=== PATIENT | male | born 1980 | race Native Hawaiian/Other Pacific Islander ===

== ENCOUNTER 2016-11-18 06:15 | Day surgery (SDC) | payer BC ==
[2016-11-17 11:56] VITALS: BMI 24.3
[2016-11-18 06:58] VITALS: RESP 18
[2016-11-18] MEDS ORDERED: Lactated Ringer's 1,000 ML IV ONE ×2 (07:12→09:08)
[2016-11-18] MEDS ORDERED: Ropivacaine 0.5% 30ML IV ONE (07:21)
[2016-11-18] MEDS ORDERED: Propofol 10 mg/ml Inj (20 ML) ONE (07:26)
[2016-11-18] MEDS ORDERED: Rocuronium 10 mg/ml (5 ml) ONE (07:26)
[2016-11-18] MEDS ORDERED: Phenylephrine 10 mg/ml Inj ONE (07:26)
[2016-11-18] MEDS ORDERED: Succinylcholine 200 mg/10 ml Inj IV ONE (07:26)
[2016-11-18] MEDS ORDERED: Lidocaine 4% (Laryng-O-Jet) Kit MM ONE (07:31)
[2016-11-18] MEDS ORDERED: Lidocaine 2% w Epi 1:100,000 Inj IJ ONE (08:00)
[2016-11-18] MEDS ORDERED: Lidocaine 1% Inj (20ml) ONE (08:00)
[2016-11-18] MEDS ORDERED: Bupivacaine 0.5% Inj(30mL) ONE (08:00)
[2016-11-18] MEDS ORDERED: Neostigmine Methylsulfate 3mg/3ml Syringe IV ONE (09:08)
[2016-11-18] MEDS ORDERED: Dexamethasone 4 mg/1 ml ONE (09:20)
[2016-11-18] MEDS ORDERED: Oxycodone/Acetaminophen 5/325 mg Tab PO PRN (09:43)
[2016-11-18] MEDS ORDERED: Lactated Ringer's 1,000 ML IV SCH (09:58)
[2016-11-18] MEDS ORDERED: HYDROmorphone 0.5 mg/0.5 ml ISec IVP PRN (09:58)
--- NOTE | 2016-11-18 10:02 | PCM.ANESB1 ---
Interscalene Block - Brachial Plexus Date of Procedure: 11/18/00 Anesthesiologist: Edith Pre-Procedure Diagnosis: R labral tear Post-Procedure Diagnosis: Same Procedure Performed: Interscalene Block of Brachial Plexus Right - Procedure Interscalene Block of Brachial Plexus: This procedure was explained to the patient that it is for post-operative pain management. Consent was obtained after a thorough discussion with the patient regarding the benefits and possible complications of local anesthetic block of the Brachial Plexus at the Interscalene area. The patient was brought to the Operating Room and standard monitors were applied. Time out was held with the circulating nurse to confirm the correct surgery and appropriate block. After procedure,under general anesthesia at request of patient, the patient's head was gently rotated away from the ___right___operative shoulder and the anterior scalene groove was carefully palpated. The ultrasound transducer was then applied to the skin in the transverse plane and the brachial plexus was visualized lateral to the carotid artery and in between the anterior and middle scalene muscles. After identification,the anterior lateral portion of the neck was prepped with Betadine solution three times and Lidocaine 1% was injected subcutaneously for topical analgesia. At this point, a # 22 gauge Stimuplex 2 inches insulated needle was inserted into the interscalene groove and directed in a caudal and midline direction. The needle was inserted lateral to the ultrasound transducer in-plane towards the brachial plexus in a [id number] direction. Needle advancement was performed carefully under direct ultrasound visualization. Nerve stimulator was used and twitched of the affected extremity including the hand brachialis muscles, biceps and the deltoid was obtained at a current of _0.5___MA. After repeated negative aspiration,___2__cc of___0.5%__, ropivicaine were injected and this was followed with ___18__cc of __0.5% ropivicaine___% ___ . Under ultrasound guidance the local anesthetics were observed surrounding the roots of the brachial plexus. The needle was removed intact and sterile dressing was applied. The patient had stable vital signs, was conscious and in no apparent distress. The patient tolerated the interscalene block of the bracheal plexus well with stable vital signs and was prepared for subsequent surgery.
[2016-11-18] MEDS ORDERED: Sodium Chloride 0.9% 1,000 ML IV ONE (11:55)
--- NOTE | 2016-11-18 12:50 | PCM.SURG1 ---
Surgeon's Initial Post Op Note - Surgeon's Notes Surgeon: Shireen Smart MD Director Of Accreditation: Dr. Kilgore Type of Anesthesia: General Endo, Other (Intrascalene block ) Pre-Operative Diagnosis: Right shoulder labral tear Operative Findings: See op report Post-Operative Diagnosis: Same as pre-op dx Operation Performed: Right shoulder Bankart artroscopy, labral repair, synovectomy, subacromial decompression Specimen/Specimens Removed: none Estimated Blood Loss: EBL {In ML}: 5 Date of Surgery/Procedure: 11/18/16 Time of Surgery/Procedure: 08:30
[2016-11-18 15:05] VITALS: BP 140/87; PULSE 87; TEMP 98; O2SAT 98
--- NOTE | 2016-11-19 10:38 | OP ---
PROCEDURE DATE: 11/18/2016 ATTENDING PHYSICIAN: Shireen Smart MD WATER QUALITY SPECIALIST: Robert Kilgore MD PREOPERATIVE DIAGNOSES: 1. Right shoulder anterior labral tear. 2. Synovitis. 3. Impingement. POSTOPERATIVE DIAGNOSES: 1. Right shoulder Bankart tear. 2. Synovitis. 3. Posterior-superior labral tear. 4. Subacromial bursitis. 5. Multiple subacromial adhesions. 6. Impingement. PROCEDURE: 1. Right shoulder arthroscopic Bankart repair, 09713. 2. Complete synovectomy, 95013. 3. Lysis of adhesions without manipulation, 76796. 4. Subacromial decompression with acromioplasty, 74301. TYPE OF ANESTHESIA: General, interscalene block. ESTIMATED BLOOD LOSS: 10 mL. SPECIMEN: None. CLOSURE: Primary. FLUIDS: See anesthesia sheet. ANTIBIOTICS: See anesthesia sheet. COMPLICATIONS: None. INDICATIONS: After failing a course of nonoperative therapy, the patient elected to undergo the above procedures. In the office the risks and possible complications of the shoulder arthroscopy were discussed in detail with the patient. These risks include, but are not limited to, continued pain, lack of motion, infection, vascular injury, and nerve injury including axillary nerve dysfunction, reflex sympathetic dystrophy, compartment syndrome, limb loss, and . The patient expressed an understanding of the risks and possible benefits of the procedure, and was also made aware of the alternatives to surgery. An informed consent was obtained, and was checked immediately preop. The patient was correctly identified in the holding area and the right shoulder was marked with the surgeon's initials. The patient was transported to the operating room and placed in the supine position and general anesthesia was obtained and regional interscalene block examined under anesthesia. A preoperative orthopedic examination revealed a passive range of motion of 170 degrees of forward elevation, 50 degrees of external rotation, and 120 degrees of abduction. Stability examination revealed anterior instability. Examination of the glenohumeral joint revealed: 1. Anterior labral tear and a paralabral cyst. 2. Extensive synovitis. 3. Posterior-superior labral tear. Using the probe, the labrum was circumferentially assessed for tear. Tears were note at posterior superior labrum. Using the 4.0 motorized shaver and radiofrequency probe, the torn edges of the labrum were debrided until stable rim, preventing any further propagation. Excessive glenohumeral synovitis was cleared with a 4.0 mm full radius shaver. The hypertrophic, erythematous synovium was resected. Hemostasis was maintained with the radiofrequency device. At this point, the anterior-inferior glenoid labral tear was addressed. An additional trans-subscapular portal was made with spinal needle localization, and a 7-mm cannula was inserted to obtain the correct angle for implant placement. Using an arthroscopic rasper, the glenoid surface was denuded down to bleeding bone. A SutureLasso passer was used to pass two #2 FiberTape sutures through the anterior-inferior labrum. An Arthrex PushLock bioabsorbable anchor was inserted using the standard technique at the 5 o'clock position after the inferior sutures were threaded through the end of the device. Proper anterior and inferior capsular tension was achieved, and the device was firmly impacted into the glenoid using a mallet. This technique was used for the superior implant as well. The shoulder was put through a range of motion, and anterior stability was confirmed by the absence of a drive-through sign as well as with an arthroscopic drawer test. At this point, the arthroscope was withdrawn from the glenohumeral joint and subacromial space was then entered using a blunt trocar. Gentle resistance sweeping against the coracoacromial ligament confirmed proper placement of the sheath and the arthroscope was inserted. A 1-cm incision was made at the inferolateral acromial area to create the lateral portal. Examination of the subacromial space revealed: 1. Extensive bursitis. 2. Multiple subacromial adhesions. 3. Impingement. Visualization of the subacromial space was difficult due to excessive bursitis. A bursectomy was performed using a combination of radiofrequency device as well as a 4.0-mm full radius motorized shaver. The soft tissue on the undersurface of the acromion was debrided utilizing the 4.0-mm full radius shaver and the radiofrequency device was used for hemostasis. At this point, the coracoacromial ligament was released with the radiofrequency device and the acromial branch of the thoracoacromial artery was coagulated with the same instrument. Subacromial decompression was performed with a 4.0-mm conical luca using both the medial portal and the "cutting-block" precision acromioplasty technique from the posterior portal. The undersurface of the acromion was resected to a flat, smooth surface to allow unrestricted excursion of the rotator cuff. There were multiples adhesions noted within the subacromial space. Adhesions were found within the anterior, posterior, and lateral gutters. These adhesions were scarred into anterior and posterior portion of rotator cuff limiting range of motion. Using the 4.0-mm motorized shaver and radiofrequency probe, adhesions were debrided and removed. All the bleeding surfaces were coagulated. Afterwards, the shoulder was taken through range of motion and there was a notable improvement in range of motion and unrestrictive excursion of rotator cuff muscle and tendons. The subacromial space was then irrigated with sterile saline, and closure was instituted with sutures. A dressing was placed consisting of Xeroform, 4x4's, ABD pads, and tape. The patient was placed in a sling with an ABD pad in the axilla. The patient was then placed in a supine position and extubated without incident. The patient was transferred to the recovery room in stable condition, having tolerated the procedure well. Postoperatively, the patient will be maintained in an abduction sling, also provided with my rehab protocol, defining the restriction and sling use for 6 weeks. Followup in 10 days. During this procedure, I was assisted by Robert Kilgore MD, who assisted in positioning the patient on the operating room table as well as transferring the patient from the operating room table to the recovery room stretcher. In addition, Robert Kilgore MD, assisted me during the actual operative procedure by positioning the patient's extremity to allow for easier arthroscopic access to all areas of the joint. The presence of Robert Kilgore MD, as my operative showroom sales assistant, was medically necessary to ensure the utmost safety of the patient in the pre, intra-, and postoperative periods. Shireen Smart MD [facility]
== END 2016-11-18 15:08 | disposition home or self-care (01) ==
LOC: H.OPSURG 06:15
PROVIDERS: ATTEND Orthopaedic Surgery
DX: S43.491A Other sprain of right shoulder joint, initial encounter (principal); S43.431A Superior glenoid labrum lesion of right shoulder, initial encounter; M65.9 Synovitis and tenosynovitis, unspecified; M75.41 Impingement syndrome of right shoulder; M75.51 Bursitis of right shoulder; M75.01 Adhesive capsulitis of right shoulder; X50.0XXA Overexertion from strenuous movement or load, initial encounter; Y93.79 Activity, other specified sports and athletics; Y92.39 Other specified sports and athletic area as the place of occurrence of the external cause
CPT/HCPCS: 29806; 29821; 29825; 29826; J0171; J0330; J0690; J1100; J2001; J2370; J2405; J2704; J2710; J2765; J3010; J7030; J7040; J7120